=== PATIENT | female | born 1980 | race Caucasian/White ===

== ENCOUNTER 2017-12-29 11:17 | Emergency (ER) | payer BC ==
[2017-12-29] MEDS ORDERED: Ondansetron ODT 4 MG TAB ONE (13:11)
[2017-12-29] MEDS ORDERED: Acetaminophen 325 MG TAB ONE (13:11)
--- NOTE | 2017-12-29 13:57 | RAD ---
FOUR VIEWS CERVICAL SPINE: Indication: Neck pain. Comparison: None. FINDINGS: The cervical spine is evaluated to T2. Prevertebral soft tissues are normal appearing. Spinal alignme nt is preserved. Lung apices are clear. Lateral masses are symmetric. IMPRESSION: Cervical spine appears radiographically normal. POS: [facility]
== END 2017-12-29 15:30 | disposition home or self-care (01) ==
LOC: ERS 11:17
DX: S06.0X9A Concussion with loss of consciousness of unspecified duration, initial encounter (principal); S16.1XXA Strain of muscle, fascia and tendon at neck level, initial encounter; W22.8XXA Striking against or struck by other objects, initial encounter
CPT/HCPCS: 72050; 99284; Q0162

== ENCOUNTER 2019-09-09 05:59 | Day surgery (SDC) | payer BC ==
[2019-09-05 09:33] VITALS: BMI 21.1
[2019-09-05 10:48] LABS: Hemoglobin 13.2 g/dL (12.0-16.0); Mean Corpuscular HGB CONC 33.6 g/dL (32.0-36.0); Mean Corpuscular Hemoglobin 31.1 pg (27.0-31.0); Mean Corpuscular Volume 92.5 fL (78.0-98.0); Mean Platelet Volume 8.5 fL (7.4-10.4); Platelet Count 286 thou/uL (130-400); RBC Distribution Width 11.5 % (11.5-14.5); Red Blood Cell (RBC) Count 4.25 mill/uL (4.20-5.40); White Blood Cell (WBC) Count 6.5 thou/uL (4.8-10.8)
[2019-09-09] MEDS ORDERED: Famotidine/PF 20 mg/2ml Vial ONE (06:14)
[2019-09-09] MEDS ORDERED: CeleCOXIB 100 MG CAP ONE (06:15)
[2019-09-09] MEDS ORDERED: Gabapentin 300 MG CAP ONE (06:16)
[2019-09-09] MEDS ORDERED: Midazolam HCl 2 mg/2 ml Vial ONE (06:32)
[2019-09-09] MEDS ORDERED: Fentanyl 100 MCG/2 ML VIAL ONE ×4 (06:32→22:27)
[2019-09-09] MEDS ORDERED: Lidocaine 1% w/Epinephrine 1:100K 20 ML VIAL ONE ×2 (06:54→20:14)
[2019-09-09] MEDS ORDERED: Bupivacaine PF 0.5% 30 ML VIAL ONE ×2 (06:54→20:14)
[2019-09-09] MEDS ORDERED: Bisacodyl 10 MG SUPP PR PRN (09:22)
[2019-09-09] MEDS ORDERED: diphenhydrAMINE 25 MG CAP PO PRN (09:22)
[2019-09-09] MEDS ORDERED: Morphine 4 MG/ML VIAL SLOW IVP PRN (09:22)
[2019-09-09] MEDS ORDERED: EPHEDRINE 25 MG/5 ML SYRINGE ONE ×2 (09:29→20:52)
[2019-09-09] MEDS ORDERED: Ketorolac Tromethamine 30 MG/ML VIAL ONE (09:29)
[2019-09-09] MEDS ORDERED: Ondansetron PF 4 MG/2 ML Vial ONE ×3 (09:29→22:31)
[2019-09-09] MEDS ORDERED: Lidocaine 1% PF 5 ML VIAL ONE ×2 (09:29→20:52)
[2019-09-09] MEDS ORDERED: Rocuronium Bromide 10 MG/ML (10ML VIAL) ONE ×2 (09:29→20:52)
[2019-09-09] MEDS ORDERED: Glycopyrrolate 0.2 MG/ML 5 ML SYRINGE ONE ×2 (09:29→20:52)
[2019-09-09] MEDS ORDERED: Dexamethasone 20 MG/5 ML VIAL ONE ×2 (09:29→20:52)
[2019-09-09] MEDS ORDERED: PROPOFOL 200 MG/20 ML VIAL ONE ×2 (09:29→20:52)
[2019-09-09] MEDS ORDERED: Ondansetron HCl/PF 4 MG/2 ML Vial IVP PRN ×2 (09:33→22:50)
[2019-09-09] MEDS ORDERED: Promethazine HCl 25 MG/ML VIAL SLOW IVP PRN (09:33)
[2019-09-09] MEDS ORDERED: Promethazine HCl 25 MG/ML VIAL IM PRN (09:33)
--- NOTE | 2019-09-09 11:46 | OP ---
DATE OF PROCEDURE: 09/09/2019 PREOPERATIVE DIAGNOSES: 1. A 38-year-old white female with symptomatic 10-to 12-week uterine fibroids with menorrhagia and pelvic pain. 2. History of previous uterine artery embolization for fibroids. 3. Desires definitive surgical therapy. POSTOPERATIVE DIAGNOSES: 1. A 38-year-old white female with symptomatic 10-to 12-week uterine fibroids with menorrhagia and pelvic pain. 2. History of previous uterine artery embolization for fibroids. 3. Desires definitive surgical therapy. PROCEDURE PERFORMED: Robotic total laparoscopic hysterectomy and bilateral salpingectomy. PAROLE DIRECTOR SURGEON: Heidi Kumar PA-C ANESTHESIA: General endotracheal. ESTIMATED BLOOD LOSS: 25 mL. COMPLICATIONS: None. COUNTS: Correct x2. ANTIBIOTICS: 2 g Ancef on-call to OR. PATHOLOGY: Uterus, cervix, and bilateral fallopian tubes. FINDINGS: 1. Multiple small uterine fibroids, subserosal and intramural noted. 2. Clear urine present in Roche catheter postprocedure and bladder was watertight to distention postprocedure. 3. Bilateral ureteral peristalsis and path of ureters visualized intraoperatively and postprocedure noted to be inferior and lateral from the operative sites. DISPOSITION: To recovery room, stable. DESCRIPTION OF PROCEDURE: The patient previously received informed consent in regard to surgery. She was taken back to the operating room, where she received a general endotracheal anesthetic agent without complications. She was placed in the dorsal lithotomy position with the use of Micky stirrups and prepped and draped in usual sterile fashion. A Roche catheter was placed at this time along with a side-arm speculum. The anterior lip of the cervix was grasped with a single-tooth tenaculum. The uterus sounded to 9 cm. An 8-cm STEVEN uterine manipulator with a 4.0-cm cervical cup was placed. Tenaculum and speculum were removed. Attention was then turned to the abdomen, where perspective trocar sites were infiltrated with 0.5% Marcaine with epinephrine. A 12-mm supraumbilical incision was made and the Veress needle was entered into the peritoneal cavity. The patient's pressure was appropriate less than 5 mm and abdomen was insufflated with the patient's pressure of 15, approximately 5 L of carbon dioxide gas. Veress needle was then removed and a 12-mm trocar was placed. Laparoscope was then introduced through the trocar sleeve confirming proper entry. Additional bilateral lower quadrant 8-mm trocars were placed under laparoscopic guidance along with an 11-mm right upper quadrant promotions assistant port. The patient was placed in Trendelenburg position and the robot was docked in usual fashion. I then broke scrub and carried out the operative procedure from the operative console while my assistants remained at the bedside. The uterus was elevated from the pelvis. The left fallopian tube was grasped by my promotions assistant with atraumatic grasper. I then coagulated the mesosalpinx with fenestrated bipolar and then monopolar scissors. The left fallopian tube was then removed through the right upper quadrant port. The left utero-ovarian ligament was then coagulated and transected and then followed by serial coagulation and transection of the broad ligament structures hugging close to uterus until the left round ligament was reached. It was coagulated and transected and the anterior leaf of the broad ligament was entered dissecting the vesicouterine peritoneum in layering technique dropping the bladder safely past the cervical vaginal margin. The uterine vessels were then skeletonized in the left side. The ureter was noted to be very lateral and inferior to the operative site in the uterine vessels at the internal cervical os. These were coagulated and transected. Next, attention was then turned to the right side of the surgery. The right fallopian tube was grasped by my promotions assistant. Again, I coagulated the mesosalpinx and transected this removing the right fallopian tube through the right upper quadrant port. The uterine vessels again were coagulated the diffusely. The utero-ovarian ligament was coagulated and transected and then serial coagulation of the broad ligament structures hugging close to the uterus again were coagulated and transected until the right round ligament was reached. It was coagulated and transected. The anterior leaf of the broad ligament was entered and continued dissection of the vesicouterine peritoneum in a layering technique dropping the bladder safely past the cervical vaginal margin was carried out. The course of the right ureter was noted and had been skeletonized. During the skeletonization of the right uterine vessels, it was lateral and inferior to the operative site. The uterine vessels again had been skeletonized and they were coagulated in the internal cervical os region. I then felt that we confirmed that the bladder was sufficiently dissected atraumatically past the cervical vaginal margin by distending the bladder. Then a posterior colpotomy was made from the 6 o'clock to 3 o'clock and 6 o'clock to 9 o'clock direction. We then completed the anterior colpotomy from 12 o'clock to 3 o'clock and 12 o'clock to 9 o'clock position. On meticulous control of the blood vessels, the small uterine perforators were then coagulated intermittently as this was transected with bipolar fenestrated cautery. The specimen was then released from the vaginal cuff. I switched the monopolar scissors for a large needle team driver. The specimen was placed in the vaginal vault as we pulled it into place. The vaginal cuff was cauterized for any bleeders with bipolar fenestrated cautery. Stratafix suture was then brought in and closed the vaginal cuff from the right angle midline to the left angle back towards the midline with good cuff closure and hemostasis. We then irrigated all the pedicle sites again confirming hemostasis. Both pass of each ureter, left and right were visualized. They were peristalsing and they were noted to be inferior and lateral to the operative pedicle sites. Floseal was then placed over the vaginal cuff and edges for added hemostasis under direct visualization. The robot was then undocked. Trocar sleeves were removed. A deep stitch of 0 Vicryl was placed in a sujexo-gb-syric stitch fashion in the umbilicus region with good approximation of the fascia. The remainder of the ports were closed with 4-0 Monocryl subcuticular fashion and Dermabond. The vaginal cuff was checked vaginally with a sponge stick and hemostasis was confirmed. The patient was awakened from anesthesia, transferred to the recovery room in stable condition. Job ID: [id number]
[2019-09-09] MEDS: Ketorolac Tromethamine 30 MG/ML VIAL IVP SCH ×2 (14:14→21:44)
[2019-09-09] MEDS ORDERED: Simethicone Chewable 80 MG TAB PO PRN (16:24)
[2019-09-09] MEDS ORDERED: Mag-Al 1200 mg/1200 mg/30 ML UDCUP PO PRN (16:25)
[2019-09-09] MEDS: Ondansetron PF 4 MG/2 ML Vial IVP PRN (17:04)
[2019-09-09] MEDS: Simethicone Chewable 80 MG TAB PO PRN (17:04)
[2019-09-09] MEDS: Sodium Chloride 0.9% 1,000 ML IV SCH ×2 (17:30→20:11)
[2019-09-09] MEDS ORDERED: Morphine 2 MG/ML SYRINGE SLOW IVP PRN (19:17)
[2019-09-09 19:19] LABS: Mean Corpuscular HGB CONC 34.4 g/dL (32.0-36.0); Mean Corpuscular Hemoglobin 31.8 pg (27.0-31.0); Mean Corpuscular Volume 92.5 fL (78.0-98.0); Mean Platelet Volume 8.4 fL (7.4-10.4); Platelet Count 219 thou/uL (130-400); RBC Distribution Width 11.4 % (11.5-14.5); Red Blood Cell (RBC) Count 2.83 mill/uL (4.20-5.40); White Blood Cell (WBC) Count 15.4 thou/uL (4.8-10.8)
--- NOTE | 2019-09-09 20:16 | PDOC.EVN ---
Event Note - Event Note Event Note: Patient began having increased pain around 1730. Was given 4 mg morphine ivp..Blood pressures since arrival from day stay were 100/50 with pulse of 70' s. Adequate urine output. Began feeling more pain and sweaty and noted blood pressure 81/46 with pulse of 73 at 1838. Had some complaint of chest pressure. EKG ordered and 1 l O2 given for comfort. O2 sat was 99%...Stat hemagram was sent. HCT 26.7%...EBL was estimated 25 ml. Starting hct was 38% preop. Therefore ; expected post operative bleeding a concern... Exam at bedside: patient with more than expected post pain. Lips are pale. P 85...BP 85/52 pulse 84..trochar sites with no hematoma. Vaginal area dry. No active bleeding. Abdomen soft but very tender...C/o some right sided pelvic and flank pain... A/P: suspected post operative bleeding. Administer 1 unit prbc's now. Anesthesia consulted. To OR for diagnostic l scope . Evacuation of hematoma if found and exploring for possible bleeder.
[2019-09-09] MEDS ORDERED: Succinylcholine Chloride 20 MG/ML 10 ml SYRINGE FS ONE (20:52)
[2019-09-09] MEDS ORDERED: PHENYLEPHRINE-NS 100 MCG/ML 10 ML SYRINGE ONE (20:52)
--- NOTE | 2019-09-09 22:24 | OP ---
DATE OF PROCEDURE: 09/09/2019 RAIL CAR REPAIRMAN NOTE Preop DX: Suspected hemoperitoneum after Hyst Procedure: Diagnostic laparoscopy, evacuation of clots, cautery of bleeding peritoneal edge. placement of floseal Surgeon: Pranav assistant coach: Sesar Anesthesia: ANA MARIAA This is a patient of Dr. Jordana Rock. Time of intervention was roughly 2119 until around 2154. LOCATION: OR B. assistant coach surgical note: In brief, I was asked by Dr. Jordana Rock to be a assistant auto center manager on this patient who earlier today had a hysterectomy (laparoscopic) with suspected intraperitoneal bleed. She was receiving blood when I entered the OR. I assisted after the initial port into the umbilicus had been placed. Two accessory ports were placed, one on the right and one on the left side in the area of the previous laparoscopic ports. On the patient's right side, I maned a 10 mm port for the large irrigation. After copious irrigation, we found hemoperitoneum (about 1000 mL is my estimate), but please see the full dictation by Dr. Rock for her quantification. After detailed survey of the pelvic area, we found that there was a small bleeding peritoneal edge which was coming from the right peritoneal edge from the previous dissection. This was rendered hemostatic with bipolar cautery. No visceral organs were close to the instrument during delivery of energy. We then placed FloSeal over this area as well after confirming that there was no further recollection of blood. Copious irrigation was done and all clots were removed. Please turn to Dr. Rock full note for full details. Again, my role was certified ophthalmic assistant. Primary surgeon was Jordana. Job ID: [id number] [facility]
[2019-09-09] MEDS ORDERED: Meperidine HCl/PF 25 MG/ML VIAL ONE (22:27)
[2019-09-09] MEDS ORDERED: Morphine 4 MG/ML VIAL ONE (22:28)
[2019-09-09] MEDS ORDERED: Meperidine HCl/PF 25 MG/ML VIAL SLOW IVP PRN (22:50)
[2019-09-09 22:52] LABS: Hemoglobin 9.7 g/dL (12.0-16.0); Mean Corpuscular Hemoglobin 30.9 pg (27.0-31.0); Mean Corpuscular Volume 90.9 fL (78.0-98.0); Mean Platelet Volume 8.9 fL (7.4-10.4); Platelet Count 165 thou/uL (130-400); RBC Distribution Width 12.9 % (11.5-14.5); Red Blood Cell (RBC) Count 3.15 mill/uL (4.20-5.40); White Blood Cell (WBC) Count 13.4 thou/uL (4.8-10.8)
[2019-09-09] MEDS: Lactated Ringer's 1,000 ML IV SCH (23:40)
[2019-09-10] MEDS: Ketorolac Tromethamine 30 MG/ML VIAL IVP SCH ×4 (00:09→19:36)
[2019-09-10] MEDS ORDERED: Lactated Ringer's 1,000 ML IV SCH (00:30)
[2019-09-10] MEDS: Sodium Chloride 0.9% 1,000 ML IV SCH ×2 (01:30→19:53)
--- NOTE | 2019-09-10 02:55 | OP ---
DATE OF PROCEDURE: 09/09/2019 PREOPERATIVE DIAGNOSES: A 38-year-old white female, approximately 10 hours postop from a robotic TLH with bilateral salpingectomy with suspected postoperative bleeding. POSTOPERATIVE DIAGNOSIS: 1. Confirmed with pelvic hematoma evacuation. 2. Cauterization of bleeder on the right fold of the peritoneum on the right pelvic sidewall. SCREEN EXAMINER SURGEON: Basilio Kaba MD from OB hospitalist service. ANESTHESIA: General endotracheal. ESTIMATED BLOOD LOSS: Less than 10 mL. FINDINGS: 1. Approximately 500 mL of clot in the pelvis, extending somewhat fluid up in the Morison's pouch status post evacuation. 2. Evaluation of left pelvic sidewall with no active bleeding and normal hemostatic left ovary. 3. Vaginal cuff inspection with no active bleeding in the vaginal cuff and appeared to be intact. No bleeding on the peritoneal surface of the bladder noted. Right ovary was hemostatic. There appeared to be more of a clot on the right pelvic sidewall. There was a small bleeder on the lower 3rd of the peritoneal edge, reflection of the retroperitoneum, status post cauterization. PATHOLOGY: None. In addition, the patient received 2 units of packed red blood cells intraoperatively. DISPOSITION: To PACU and then back to the floor. DESCRIPTION OF PROCEDURE: The patient had suspected postoperative bleeding with noted evidence of increasing abdominal pain and unexpected drop in her hematocrit with low blood pressure. No elevated tachycardia of much concern, but rising heart rate from her baseline. She was given informed consent, taken to the operating room. Anesthesia administered general endotracheal anesthetic agent. She was prepped and draped in usual fashion, placed in dorsal lithotomy position. Roche catheter had already been in place. A 5 mm incision in the umbilicus was made. A 5 mm Veress needle was inserted in the abdomen. Abdomen was insufflated to the patient's pressure of 15. A 5 mm trocar was then placed. The laparoscope was introduced through the trocar sleeve. The abdomen was inspected and noted hematoma was present. A size 10 mm right lower quadrant trocar was placed with a large 10 mm suction geriatric physical therapist. A 5 mm left lower quadrant trocar was then also placed under laparoscopic guidance. The patient was placed in Trendelenburg and a vaginal sponge stick was placed in the vagina to elevate the vaginal cuff. The pelvis was irrigated and a large hematoma was evacuated with a 10 mm suction geriatric physical therapist. Then we switched to the 5 mm suction area on the left side and irrigated Morison's pouch removing a majority of the blood. This allowed for us to inspect the operative pedicle sites more carefully. The left pelvic sidewall and left ovary did not appear to have any active bleeding. The vaginal cuff did not appear to have any active bleeding nor any bleeding in the peritoneal surfaces of the bladder. The right pelvic sidewall had more of a clotting in this region and then on inspection appeared to be some slow accumulation of blood over the edge site and there appeared to be a type of area of some oozing on the peritoneal edge with some active bleeding. This area was grasped with the Estefania after isolation of this and cauterized with coag at 30 ghotra. We then irrigated again the area and in the posterior cul-de-sac and there was no active accumulation of any significant blood and mainly was irrigant solution that remained clear. We then dropped the patient's abdominal pressure to 0 and then went back in after approximately 3 minutes and looked back into the peritoneal cavity. No excessive blood had accumulated on a low venous pressure. We then added FloSeal to the area of the right pelvic sidewall bed where the oozing had been noted and the bleeder had been cauterized. Again, we inspected the other pedicle sites including the vaginal cuff and the peritoneal surface of the bladder on the left pelvic sidewalls and ovary and right ovary and all appeared hemostatic. The excess carbon dioxide gas was then released from the abdomen. Trocar sleeves were removed. I put in a single stitch of 0 Vicryl in the fascia of the 5 cm site, closed this with 4-0 subcuticular Monocryl along with the other trocar sites and I put a deep stitch of 0 Vicryl in the 10 mm fascial edge on the right lower quadrant along with a 4-0 Monocryl. Dermabond was then placed in the vaginal cuff. Sponge stick was removed and it was hemostatic. The patient was awakened from anesthesia and transferred to recovery room in stable condition. Job ID: [id number]
[2019-09-10] MEDS: Lactated Ringer's 1,000 ML IV SCH ×2 (05:57→19:42)
[2019-09-10 06:10] LABS: Hemoglobin 8.5 g/dL (12.0-16.0); Mean Corpuscular HGB CONC 33.4 g/dL (32.0-36.0); Mean Corpuscular Hemoglobin 29.9 pg (27.0-31.0); Mean Corpuscular Volume 89.4 fL (78.0-98.0); Mean Platelet Volume 8.8 fL (7.4-10.4); Platelet Count 159 thou/uL (130-400); RBC Distribution Width 13.3 % (11.5-14.5); Red Blood Cell (RBC) Count 2.85 mill/uL (4.20-5.40); White Blood Cell (WBC) Count 12.5 thou/uL (4.8-10.8)
--- NOTE | 2019-09-10 08:18 | PDOC.EVN ---
Event Note - Event Note Event Note: Feels better. Pain is a 4 compared to a 10 last pm prior to surgery. O:Afebrile. 98/54 P 84 O2 sat 98..HCT 25.5 at 0550. U/o >30 ml/hour... Abdomen-soft. Non distended. Trochar site intact. No rebound... Vagina-no active bleeding. A/P: post op day 1 from robotic hyst with post op bleeding and then diagnostic l scope with evacuation of 1000 ml blood and coagulation of right peritoneal side wall edge bleeder. Received 2 units prbc's.Appears hemodynamically stable. Advance to clears. Begin increasing activity . observe for signs of orthostatic symptoms.
[2019-09-10] MEDS: Ondansetron PF 4 MG/2 ML Vial IVP PRN (08:20)
[2019-09-10] MEDS: HYDROcodone/Acetaminophen 5/325 mg Tablet PO PRN ×3 (13:14→21:35)
[2019-09-10] MEDS: Simethicone Chewable 80 MG TAB PO PRN (13:15)
[2019-09-10] MEDS: Prenatal Vitamin 1 TAB PO SCH (14:55)
[2019-09-10 20:05] LABS: Hemoglobin 8.5 g/dL (12.0-16.0); Mean Corpuscular HGB CONC 34.3 g/dL (32.0-36.0); Mean Corpuscular Hemoglobin 30.6 pg (27.0-31.0); Mean Corpuscular Volume 89.3 fL (78.0-98.0); Mean Platelet Volume 7.5 fL (7.4-10.4); Platelet Count 124 thou/uL (130-400); RBC Distribution Width 13.3 % (11.5-14.5); Red Blood Cell (RBC) Count 2.77 mill/uL (4.20-5.40); White Blood Cell (WBC) Count 10.9 thou/uL (4.8-10.8)
[2019-09-10 20:21] LABS: Anion Gap 6 mmol/L (10-20); BUN (Urea Nitrogen) 10 mg/dL (7.0-18.7); Calc. Creatinine Clearance 119 mL/min (70-130); Calcium 7.6 mg/dL (7.8-10.44); Carbon Dioxide 26 mmol/L (22-29); Chloride 110 mmol/L (98-107); Estimated GFR-MDRD Greater than 90; Glucose 101 mg/dL (70-105); Potassium 3.9 mmol/L (3.5-5.1); Sodium 138 mmol/L (136-145)
[2019-09-11] MEDS ORDERED: Ibuprofen 800 MG TAB PO SCH (06:00)
[2019-09-11] MEDS: Sodium Chloride 0.9% 1,000 ML IV SCH ×3 (07:16→16:57)
[2019-09-11] MEDS: Lactated Ringer's 1,000 ML IV SCH ×3 (07:17→23:38)
[2019-09-11] MEDS: HYDROcodone/Acetaminophen 5/325 mg Tablet PO PRN ×2 (07:20→11:17)
--- NOTE | 2019-09-11 07:50 | PDOC.EVN ---
Event Note - Event Note Event Note: Feels better this morning. Tolerating diet. passing some flatus. Slept ok. No excessive pain. O: T 98.6 Pulse 86 BP 103/67 U/O 700ml last shift. HCT 23.5 @0455....24.7 hct 1 hour post 1 unit prbc's at 1958... ABDOMEN: soft/non distended.Bowel sounds present. No rebound. Trochar sites clean dry/intact. A/P Post op day 2 from Robotic hyst with post op bleed/hemorrhage with diagnostic scope and removal of hemoperitoneum and cauterization of bleeder. Hemodynamically after unit 3 PRBC's... Blood pressure stable. Good urine output. No tachycardia. HCT stable. OOB. Increase activity. Diet advanced. D/c johnson after ambulating safely...
[2019-09-11] MEDS: Simethicone Chewable 80 MG TAB PO PRN ×2 (08:28→21:16)
[2019-09-11] MEDS: Prenatal Vitamin 1 TAB PO SCH (09:26)
[2019-09-11] MEDS ORDERED: traMADol HCl 50 MG TAB PO PRN (13:30)
[2019-09-11] MEDS: Ondansetron PF 4 MG/2 ML Vial IVP PRN (18:05)
[2019-09-11] MEDS ORDERED: Acetaminophen 500 MG TAB PO PRN (20:50)
[2019-09-11] MEDS ORDERED: Metoclopramide HCl 10 MG/2 ML VIAL IVP PRN (20:51)
[2019-09-11] MEDS ORDERED: Ondansetron PF 4 MG/2 ML Vial SLOW IVP PRN (20:51)
[2019-09-11] MEDS ORDERED: Ibuprofen 800 MG TAB PO PRN (20:52)
[2019-09-11] MEDS ORDERED: Ondansetron PF 4 MG/2 ML Vial SLOW IVP SCH (21:00)
[2019-09-11] MEDS: Zolpidem Tartrate 5 MG TAB PO PRN (22:22)
[2019-09-12] MEDS: VITEX PO SCH ×2 (01:10→04:26)
[2019-09-12] MEDS: Sodium Chloride 0.9% 1,000 ML IV SCH ×2 (03:00→08:09)
[2019-09-12] MEDS: Zolpidem Tartrate 5 MG TAB PO PRN (03:16)
[2019-09-12] MEDS: Lactated Ringer's 1,000 ML IV SCH ×2 (06:26→08:09)
[2019-09-12] MEDS: Prenatal Vitamin 1 TAB PO SCH (07:45)
[2019-09-12 07:59] VITALS: BP 108/63; TEMP 99.5
--- NOTE | 2019-09-12 08:14 | PDOC.EVN ---
Event Note - Event Note Event Note: S: Feels much stronger this morning. Ambulated without assistance ...nausea resolved. Feels like the tramadol made her feel anxious and nauseated. Doing better with just tylenol and motrin..+flatus. O: T98.3 P 90 BP 110/74 o2 sat 98% on RA..U/O 2280 ml ABD: soft. Non distended. Trochar sites c/d/i A/P Post op day 3...Clinically much improved. hemodynamically stable. Afebrile. D/c home today. F/u 09/15. OTC tylenol/motrin. Iron rich foods. OTC iron supplement once she has bm....
--- NOTE | 2019-09-12 08:22 | EKG ---
Test Reason : STAT Blood Pressure : / mmHG Vent. Rate : 086 BPM Atrial Rate : 086 BPM P-R Int : 122 ms QRS Dur : 068 ms QT Int : 370 ms P-R-T Axes : 075 056 063 degrees QTc Int : 442 ms Normal sinus rhythm Normal ECG No previous ECGs available Confirmed by DR. Manuel GOULD ([id number]) on 09/12/2019 8:21:40 AM Referred By: DREA Confirmed By:DR. Manuel GOULD
--- NOTE | 2019-09-13 07:38 | DIS ---
DATE OF ADMISSION: 09/09/2019 DATE OF DISCHARGE: 09/12/2019 DIAGNOSES: 1. Symptomatic uterine fibroids, menorrhagia and pelvic pain. 2. Postoperative hemorrhage. 3. Acute blood-loss anemia. PROCEDURES PERFORMED: Robotic total laparoscopic hysterectomy with bilateral salpingectomy. Diagnostic laparoscopy with evacuation of the hemoperitoneum and cauterization of bleeding vessel. 3 units of packed red blood cell transfusion. SUMMARY OF HOSPITAL COURSE: Ms. Pino is a 38-year-old white female, who had approximately 12-week size uterine fibroids. She had, had uterine artery embolization procedure in the past for the fibroids for heavy bleeding and pelvic pain, which essentially had failed. She persisted with heavy menorrhagia and also pelvic pain and dysmenorrhea. She desired definitive surgical therapy. On September 08, she underwent a robotic total laparoscopic hysterectomy and bilateral salpingectomy. Intraoperative blood loss of this maybe 25 mL. On the late afternoon of postop day #1, the patient began to ambulate out of bed and then was noted to have an increasing abdominal pain. She also reported some shoulder pain and chest discomfort. Vital signs were at the baseline 100/50s and pulse remained in the 70s to 80s. She was brought back in the bed and then she was given morphine 4 mg for the pain. She then was brought to the chair to get more comfort and then she became hypotensive with a blood pressure in the 80s/50s and pulse in the high 80s. I was called in by the floor nurse and I ordered an EKG along with a CBC. O2 saturations remained normal throughout. I was also then came to evaluate the patient at the bedside. On my arrival, I noted her CBC results, she had dropped her hematocrit more than expected from her intraoperative estimated blood loss. Starting hematocrit was approximately 39% and it dropped down to 26%. This was worrisome for postoperative bleed/hemorrhage. The patient at the bedside was very uncomfortable, had definite rebound on exam with an overly tender abdomen and inappropriate for usual postoperative course. She received 1 L of Ringer's lactate fluid bolus and I summoned the operating room and Anesthesia to plan for taking the patient back for diagnostic laparoscopy. 2 units of packed red blood cells were ordered and these were planned to be started infusing in Day Stay prior to taking back to the OR. The patient underwent a diagnostic laparoscopy at this time and was noted to have approximately 1000 mL of hemoperitoneum clot. This was evacuated. In meticulous inspection of the pelvis from the previous operative site, there appeared to be a small bleeder on the right medial inferior third of the peritoneal fold. This was cauterized. All the other areas were carefully inspected and no active bleeders were seen. The pressures were dropped again and no active accumulation of blood was noted. Floseal was then also placed over the previous bleeder site. The patient had received 2 units of blood intraoperatively and vitals were stable. She was then taken to the PACU and immediate postoperative hematocrit after 2 units was noted to be approximately 27. Her vital signs remained stable. She was transferred back to the postoperative floor. She had another hematocrit checked approximately 8 hours postoperatively, there is mild drop from 27 to approximately 25. Again, vital signs were stable and with no excessive resting tachycardia. Her urine output remained adequate greater than 30 mL throughout and her pain was managed with intermittent morphine and also Novinger with clear liquids. In the evening of 2nd postop procedure, she was gotten up and had ambulated to the bathroom with assistance by the nurse and she did feel very orthostatic from the supine to standing position, where she had a near syncopal episode. Nurse brought her back in the bed safely. I felt that the patient needed another unit of packed cells and these were administered. I had again returned to bedside and evaluated the patient. Her abdomen was soft. She had no extensive peritoneal signs and like she did with the previous hemorrhage. I administered another unit of packed cells. Her vital signs returned and the pulse is in the 70s to 80s with blood pressures in the 100 to 110s over 60s to 70s. Urine output again continued to remain adequate. She was then on postop day 2, increased her ambulation with assistance. This all improved and her pain medications were being managed by oral Novinger, which she then said was too powerful, made her feel woozy and we switched this to tramadol. In the evening of postop day #2, she felt some anxiety and felt that this may be contributed to the tramadol. We held this and she was actually having adequate pain control with oral Tylenol and Motrin. She was given Ambien 5 mg at night for sleep and the anxiety, which worked very well for her and she had a restful night prior to discharge this morning. Again, her vital signs are 110s/70s, pulse in the 80s, respirations 16, and O2 saturations on room air 98%. She is comfortable with no excessive pain. Pathology was reviewed with all benign uterine fibroids. She was discharged on 09/12/2019. Discharge medications will be [id number] ibuprofen and Tylenol as directed and Ambien 5 mg tablet at bedtime for sleep as needed. She will be followed up on 09/15 for postoperative check and has already scheduled 6-week postop followup. Job ID: [id number]
== END 2019-09-12 11:15 | disposition home or self-care (01) ==
LOC: SDC 05:59 → 3SE 09:22 → SURG A 09-11 17:01 → SDC 09-12 11:15
PROVIDERS: ATTEND Obstetrics & Gynecology
PROC: 0UT94ZZ Resection of Uterus, Percutaneous Endoscopic Approach (ICD-10-PCS; principal; 2019-09-09)
PROC: 0UT74ZZ Resection of Bilateral Fallopian Tubes, Percutaneous Endoscopic Approach (ICD-10-PCS; principal; 2019-09-09)
PROC: 0W3G4ZZ Control Bleeding in Peritoneal Cavity, Percutaneous Endoscopic Approach (ICD-10-PCS; 2019-09-09)
DX: D25.1 Intramural leiomyoma of uterus (principal); D25.2 Subserosal leiomyoma of uterus; N72 Inflammatory disease of cervix uteri; N99.840 Postprocedural hematoma of a genitourinary system organ or structure following a genitourinary system procedure; N99.820 Postprocedural hemorrhage of a genitourinary system organ or structure following a genitourinary system procedure; K66.1 Hemoperitoneum; Z88.8 Allergy status to other drugs, medicaments and biological substances
CPT/HCPCS: 36415; 36430; 80048; 85014; 85018; 85027; 86850; 86900; 86901; 88307; 93005; 93010; J0690; J1100; J1885; J2001; J2175; J2250; J2270; J2405; J2704; J2765; J3010; P9016; S0020; S0028

== ENCOUNTER 2019-09-15 14:20 | Inpatient (IN) | payer BC ==
[2019-09-15] MEDS ORDERED: Iopamidol-370 76% 500 ML 1 ML ONE (14:37)
[2019-09-15 14:58] LABS: #Eosinphils 0.2 thou/uL (0.0-0.7); #Lymphocytes 0.8 thou/uL (1.20-3.40); #Monocytes 1.4 thou/uL (0.11-0.59); #Neutrophils 15.5 thou/uL (1.40-6.50); %Basophils 0.2 % (0.0-1.0); %Lymphocytes 4.6 % (21.0-51.0); %Monocytes 7.9 % (0.0-10.0); %Neutrophils 86.3 % (42.0-75.0); Hemoglobin 10.2 g/dL (12.0-16.0); Mean Corpuscular Hemoglobin 30.8 pg (27.0-31.0); Mean Corpuscular Volume 90.7 fL (78.0-98.0); Mean Platelet Volume 8.1 fL (7.4-10.4); Platelet Count 296 thou/uL (130-400); RBC Distribution Width 12.8 % (11.5-14.5); Red Blood Cell (RBC) Count 3.31 mill/uL (4.20-5.40)
[2019-09-15 15:19] LABS: ALT (SGPT) 14 U/L (8-55); AST (SGOT) 14 U/L (5-34); Albumin 4.3 g/dL (3.5-5.0); Alkaline Phosphatase 80 U/L (40-110); Anion Gap 15 mmol/L (10-20); BUN (Urea Nitrogen) 6 mg/dL (7.0-18.7); Bilirubin, Total 0.9 mg/dL (0.2-1.2); Calc. Creatinine Clearance 0 mL/min (70-130); Calcium 9.8 mg/dL (7.8-10.44); Carbon Dioxide 23 mmol/L (22-29); Chloride 103 mmol/L (98-107); Estimated GFR-MDRD Greater than 90; Globulin 3.4 g/dL (2.4-3.5); Glucose 116 mg/dL (70-105); Potassium 3.7 mmol/L (3.5-5.1); Protein, Total 7.7 g/dL (6.0-8.3); Sodium 137 mmol/L (136-145)
[2019-09-15] MEDS ORDERED: Piperacillin/Tazobactam 4.5 GM VIAL ONE (15:49)
--- NOTE | 2019-09-15 16:08 | RAD ---
Chest AP view INDICATION: History of recent hysterectomy and fever COMPARISON: None FINDINGS: Lungs: The lungs are clear Cardiac silhouette: The cardiomediastinal silhouette appears within normal limits. Pulmonary vasculature: Normal Pleural spaces: No pleural effusion or pneumothorax is demonstrated. Upper abdomen: No abnormality seen. Osseous structures: No acute osseous abnormality. Additional findings: None. IMPRESSION: No acute cardiopulmonary abnormality.
[2019-09-15 16:09] LABS: Bilirubin Negative (Negative); Blood, Urine Negative (Negative); Clarity Clear (Clear); Glucose, Urine (Dipstick) Normal (Negative); Leukocyte Negative Leu/uL (Negative); Nitrite Negative (Negative); Protein, Urine (Dipstick) Negative (Neg-Trace); Urobilinogen Normal mg/dL (Less than 2)
--- NOTE | 2019-09-15 16:16 | CT ---
CT OF THE ABDOMEN AND PELVIS WITH IV CONTRAST INDICATION: History of hysterectomy on September 08, 2018; now with fever COMPARISON: None FINDINGS: ABDOMEN: Lung bases: Clear Liver: There is a mild amount of fatty infiltration near the falciform ligament Gallbladder: Normal appearing. Pancreas: Normal. Adrenal glands: Normal. Spleen: Normal. Kidneys and ureters: Normal. No hydronephrosis. Vasculature: There are endovascular coils seen within the gonadal veins. Lymph nodes:No lymphadenopathy. Free fluid in abdomen:No free fluid is evident. PELVIS: Small and large bowel: Normal Appendix:Normal Bladder: Normal. Rectal and perirectal soft tissues:There is mild wall thickening involving the lower rectum. There is prominent perirectal inflammatory stranding Reproductive structures: Uterus surgically absent. The adnexa appear enlarged and edematous. The righ t adnexa measures approximately 4.3 cm. Left adnexa measures 4.1 cm. This is seen on image 60 series 2. Within the hysterectomy site there is a 6.8 x 5 cm fluid and gas collection suspicious for abscess. Free fluid in pelvis: There is moderate free fluid in the pelvis Lymphadenopathy pelvis: No lymphadenopathy is evident. Osseous structures: No acute osseous abnormality. No destructive osteolytic or osteoblastic lesion i s identified. Soft tissues:Normal. IMPRESSION: 1. Postoperative change of a hysterectomy with a 6.8 x 5 cm abscess seen at the hysterectomy site. Th e position of this abscess within the central pelvis limits ability for percutaneous drainage. The collection is seen posterior to the bladder and is surrounded by the rectum and bowel. Surgical consu ltation for drainage is recommended. 2. Mild wall thickening involving the lower rectum with surrounding perirectal inflammatory stranding is likely related to reactive proctitis from the adjacent abscess. 3. Enlargement and edematous changes of the adnexa may be reactive in nature related to the abscess w ithin the pelvis. 4. Endovascular coils within the region of the gonadal veins.
[2019-09-15] MEDS ORDERED: Acetaminophen 500 MG TAB PO PRN (16:34)
[2019-09-15] MEDS ORDERED: Ondansetron PF 4 MG/2 ML Vial IVP PRN (16:34)
[2019-09-15] MEDS ORDERED: Ibuprofen 200 MG TAB ONE (17:07)
[2019-09-15] MEDS ORDERED: Vancomycin 1.5 GRAM/300 ML BAG 1.5 GM in Premix Bag 1 BAG IVPB SCH (17:30)
[2019-09-15] MEDS ORDERED: Lactated Ringer's 1,000 ML IV SCH (19:00)
[2019-09-15] MEDS: Acetaminophen 325 MG TAB PO PRN (19:25)
[2019-09-15] MEDS: Sodium Chloride 0.9% 1,000 ML IV SCH (19:43)
[2019-09-15 21:20] VITALS: BMI 24.8
[2019-09-15] MEDS: Docusate 100 MG CAP PO SCH (21:47)
[2019-09-15] MEDS: Piperacillin/Tazobactam 3.375 GM in Sodium Chloride 0.9% 100 ML IVPB SCH (21:48)
--- NOTE | 2019-09-15 21:51 | HP ---
CHIEF COMPLAINT: Fever postop. HISTORY OF PRESENT ILLNESS: Ms. Pino is a 38-year-old female with a history of previous uterine artery embolization for symptomatic uterine fibroids, who is postop day #6 status post robotic TLH that was complicated by postop bleeding. She had a reoperation to obtain hemostasis. She presented to the emergency department with new onset fever today and headaches for the last 2 days. She reports that her pain has actually much improved up until this point and other than her headaches is otherwise without complaints. REVIEW OF SYSTEMS: Negative for head, eyes, ears, nose, throat, cardiovascular, respiratory, GI, , neuropsych, musculoskeletal, skin, or constitutional symptoms other than mentioned above. Her history and physical was reviewed from preop on 09/05 and is without any interval changes. MEDICATIONS: Ibuprofen and Tylenol as needed. PHYSICAL EXAMINATION: VITAL SIGNS: Temperature 102.7, tachycardic in the 100s, blood pressure within normal limits. GENERAL: Awake, alert, no acute distress. CHEST: Nonlabored. ABDOMEN: Soft and appropriately tender to palpation. No rebound or guarding. PELVIC: Deferred at this time. ASSESSMENT/PLAN: A 38-year-old G4, P3, A1, status post robotic TLH with reoperation for bleed, who has postop fever. CT scan showed an area at the vaginal cuff consistent with abscess versus hematoma. She will be admitted for IV antibiotics and placed on IV vanc and Zosyn at this time. I spoke with Dr. Rock, who agrees with this plan. We will continue to monitor for clinical improvement. If no improvement, she may need surgical drainage. I discussed these findings with the patient who voiced understanding. Job ID: [id number] [facility]
[2019-09-15] MEDS ORDERED: Piperacillin/Tazobactam 3.375 GM in Sodium Chloride 0.9% 100 ML IVPB SCH (23:59)
[2019-09-16] MEDS: Vancomycin 1 GM in Premix Bag 1 BAG IVPB SCH ×3 (02:38→17:53)
[2019-09-16] MEDS: Ibuprofen 800 MG TAB PO PRN ×2 (03:41→16:05)
[2019-09-16] MEDS: Piperacillin/Tazobactam 3.375 GM in Sodium Chloride 0.9% 100 ML IVPB SCH ×4 (04:20→22:13)
[2019-09-16] MEDS: Acetaminophen 325 MG TAB PO PRN ×2 (04:57→16:06)
[2019-09-16 06:15] LABS: Band 7 % (5-11); Hemoglobin 7.9 g/dL (12.0-16.0); Hypochromia SLIGHT = 6-15 cells (100X) (0-5/hpf); Lymphocytes 7 % (21-51); MDiff Complete? YES; Mean Corpuscular HGB CONC 34.3 g/dL (32.0-36.0); Mean Corpuscular Hemoglobin 31.2 pg (27.0-31.0); Mean Corpuscular Volume 91.1 fL (78.0-98.0); Mean Platelet Volume 8.1 fL (7.4-10.4); Monocytes 3 % (0-10); Neutrophil 83 % (42-75); Platelet Count 225 thou/uL (130-400); Platelet Morphology Comment Appears Adequate; RBC Distribution Width 12.5 % (11.5-14.5); Red Blood Cell (RBC) Count 2.52 mill/uL (4.20-5.40); White Blood Cell (WBC) Count 19.9 thou/uL (4.8-10.8)
--- NOTE | 2019-09-16 07:46 | PDOC.EVN ---
Event Note - Event Note Event Note: No pain. Hungry... O: T 98.9 ..TMAX 102.9. 106/60. P 96 R14 ABD soft/non distended. No rebound. WBC19.9 HCT 22.9...discharge hct 24%. A/P: pod 7 --ct scan with 5 x 6.8 collection in lower pelvis most c/w infected hematoma and appropriate for recent surgery with post op bleed and reoperation...Continue iv antibiotics and follow patient clinically ....
[2019-09-16] MEDS: Docusate 100 MG CAP PO SCH ×2 (09:14→20:49)
[2019-09-16] MEDS: Prenatal Vitamin 1 TAB PO SCH (09:15)
[2019-09-16] MEDS: Sodium Chloride 0.9% 1,000 ML IV SCH ×2 (16:06→23:22)
[2019-09-17 01:40] LABS: Vancomycin, Trough 12.2 ug/mL
[2019-09-17] MEDS: Vancomycin HCl 1.25 GM in Sodium Chloride 0.9% 250 ML 250 ML IVPB SCH ×3 (02:08→18:07)
[2019-09-17] MEDS: Piperacillin/Tazobactam 3.375 GM in Sodium Chloride 0.9% 100 ML IVPB SCH ×4 (03:58→22:08)
[2019-09-17] MEDS: Ibuprofen 800 MG TAB PO PRN ×2 (07:48→18:00)
--- NOTE | 2019-09-17 08:21 | PDOC.EVN ---
Event Note - Event Note Event Note: Reports had a good night and had BM. Passed some bloody brownish vaginal fluid. Feels ok until she gets a fever. No excessive abdominal pain. No n/v. O: Tmax 130.1. T current 98.7 P 96 94/50 Blood cultures neg x 2 urine culture neg. HCT 22.9 --baseline at discharge was 24.... Abdomen is soft/non distended. No rebound. A/P: presumed infected cuff hematoma . On zosyn/vancomycin day 1-2. Has fever spikes with afebrile periods. Anemia from recent post op bleed.. Will transfuse 1 unit today to improve healing and less stress on patient with infection. Continue zosyn/vancomycin. Consider reimaging with CT 09/17 for hematoma /mass status.
[2019-09-17] MEDS: Prenatal Vitamin 1 TAB PO SCH (08:55)
[2019-09-17] MEDS: Docusate 100 MG CAP PO SCH ×2 (08:56→22:09)
[2019-09-17] MEDS: Sodium Chloride 0.9% 1,000 ML IV SCH (20:44)
[2019-09-18 01:04] LABS: #Eosinphils 0.3 thou/uL (0.0-0.7); #Lymphocytes 1.4 thou/uL (1.20-3.40); #Monocytes 1.4 thou/uL (0.11-0.59); #Neutrophils 10.8 thou/uL (1.40-6.50); %Basophils 0.2 % (0.0-1.0); %Eosinophils 2.5 % (0.0-10.0); %Lymphocytes 10.1 % (21.0-51.0); %Neutrophils 77.2 % (42.0-75.0); Hemoglobin 7.4 g/dL (12.0-16.0); Mean Corpuscular HGB CONC 33.5 g/dL (32.0-36.0); Mean Corpuscular Hemoglobin 30.6 pg (27.0-31.0); Mean Corpuscular Volume 91.5 fL (78.0-98.0); Mean Platelet Volume 7.6 fL (7.4-10.4); Platelet Count 255 thou/uL (130-400)
[2019-09-18 01:26] LABS: Vancomycin, Trough 21.2 ug/mL
[2019-09-18] MEDS: Vancomycin 1 GM in Premix Bag 1 BAG IVPB SCH ×2 (01:48→12:07)
[2019-09-18] MEDS: Piperacillin/Tazobactam 3.375 GM in Sodium Chloride 0.9% 100 ML IVPB SCH ×4 (04:09→22:08)
--- NOTE | 2019-09-18 07:43 | PDOC.EVN ---
Event Note - Event Note Event Note: Ambulating. Had another BM last night. Had more passage of foul smelling serosanguinous vaginal fluid. No pain of concern. O: T max 101.4...P 89-91. Tc 98.5 BP 96/61 ABD:soft. Non-distended. No rebound. Ecchymosis areas stable. WBC 14 with 77.2 segs....Improved from WBC 19....Received 1 uniti prbc's ...HGB stable at 7.4. Has received 75 ml ivf with additional ivf from antibiotics...Does not appear to be actively bleeding clinically. A/P: Temperature curve and WBC down trending. Appears to have had spontaneous evacuation of infected vaginal cuff hematoma. Continue IV Vancomycin/zosyn. Decrease IVF's.
[2019-09-18] MEDS: Acetaminophen 325 MG TAB PO PRN (09:19)
[2019-09-18] MEDS: Docusate 100 MG CAP PO SCH ×2 (09:19→20:52)
[2019-09-18] MEDS: Ondansetron ODT 4 MG TAB PO PRN ×2 (10:29→22:15)
[2019-09-18] MEDS: Prenatal Vitamin 1 TAB PO SCH (10:37)
--- NOTE | 2019-09-18 12:13 | PQF ---
CLINICAL DOCUMENTATION IMPROVEMENT CLARIFICATION FORM: ICD-10 Updated PLEASE DO AN ADDENDUM TO THE PROGRESS NOTE WITH ANY DOCUMENTATION UPDATES OR ADDITIONS AND CARRY THROUGH TO DC SUMMARY. THANK YOU. DATE: 09/18/19 ATTN: DR. SHEPARD Please exercise your independent, professional judgment in responding to the clarification form. Clinical indicators are provided on the bottom of this form for your review Please check appropriate box(es): [ ] Sepsis due to: (Pna, UTI, gangrenous gall bladder, etc.) Due to: [ ] SIRS due to non-infectious process (please specify etiology) [ ] Localized infection without sepsis [ ] Other diagnosis [ ] Unable to determine In addition, please specify: Present on Admission (POA): [ ] Yes [ ] No [ ] Unable to determine For continuity of documentation, please document condition throughout progress notes and discharge summary. Thank You. CLINICAL INDICATORS - SIGNS / SYMPTOMS / LABS / RESULTS AND LOCATION IN MR ER NOTE: "SEPSIS" PULSE 109-126 TEMP 103 WBC 8: 18.0 WBC 09/15: 19.9 RISKS: RECENT VAGINAL CUFF HEMATOMA (EVENT NOTE 09/17) RECENT HYSTERECTOMY (H&P 09/16) TREATMENT: IV VANCOMYCIN (ER-PRESENT) IV FLUIDS (ER-PRESENT) ZOSYN (ER-PRESENT) BLOOD AND URINE CULTURES SAP Nuclear Medicine Physician [employer] Winform Viewer (This form is maintained as a part of the permanent medical record) 2014 [employer]. All Rights Reserved [email or web address] [email or web address] Office: [phone] YAHAIRA
--- NOTE | 2019-09-18 12:23 | PQF ---
CLINICAL DOCUMENTATION IMPROVEMENT CLARIFICATION FORM: ICD-10 Updated PLEASE DO AN ADDENDUM TO THE PROGRESS NOTE WITH ANY DOCUMENTATION UPDATES OR ADDITIONS AND CARRY THROUGH TO DC SUMMARY. THANK YOU. DATE: 09/18/19 ATTN : DR. SHEPARD Please exercise your independent, professional judgment in responding to the clarification form. Clinical indicators are provided on the bottom of this form for your review Please check appropriate box(s): [ ] Acute blood loss anemia [ ] Post-op anemia related to acute blood loss [ ] Anemia: [ ] Aplastic [ ] Nutritional [ ] Drug induced (specify) ___ [ ] Chronic Anemia: [ ] Blood loss [ ] Hemolytic [ ] Simple [ ] Due to Vitamin B12 Deficiency [ ] Other [ ] Anemia of Chronic Disease (please specify) [ ] Other diagnosis [ ] Unable to determine In addition, please specify: Present on Admission (POA): [ ] Yes [ ] No [ ] Unable to determine For continuity of documentation, please document condition throughout progress notes and discharge summary. Thank You. CLINICAL INDICATORS - SIGNS / SYMPTOMS / LABS / RESULTS AND LOCATION IN EMR HGN 09/14: 10.2 HGN 09/15: 7.9 HCT 09/14: 30.0 HCT 09/15: 22.9 RISKS: VAGINAL CUFF HEMATOMA (EVENT NOTE 09/17) RECENT HYSTERECTOMY (H&P 09/16) TREATMENT: SERIAL LABS BLOOD TRANSFUSION X2 (ORDERED 09/16) (This form is maintained as a part of the permanent medical record) 2014 [employer] All Rights Reserved [email or web address] Office: [phone] [facility] CENTERBrayan
[2019-09-18] MEDS ORDERED: Vancomycin 1 GM in Premix Bag 1 BAG IVPB SCH ×2 (14:00→20:00)
[2019-09-18] MEDS ORDERED: Iopamidol-370 76% 500 ML 1 ML ONE (15:32)
[2019-09-18] MEDS: Sodium Chloride 0.9% 1,000 ML IV SCH ×2 (17:00→20:30)
[2019-09-18] MEDS: Ibuprofen 800 MG TAB PO PRN (18:57)
--- NOTE | 2019-09-18 23:31 | CT ---
CT Abdomen Pelvis W Con HISTORY: Follow-up of infected pelvic hematoma. COMPARISON: 09/15/2019 CT study. FINDINGS: There is been development of a small right pleural effusion. There are periportal edema laure nges which have developed since the prior examination. In addition the hepatic veins have a somewhat unusual appearance with peripheral lucency and more central increased density. This is proba eli just related to edema around the hepatic veins but causes appearance of possible thrombus within the hepatic veins. The appearance is not typical for a Budd-Chiari and although I think it is unlikely further investigation would be warranted. There is fluid adjacent to the liver and somewhat loculated appearing fluid along the inferior liver margin and gallbladder region. The spleen and pancreas regions appear unremarkable. Right and left adrenal glands and right and left kidneys are normal in size. There is some fluid in t he paracolic gutters and some minimal edema change associated with the mesenteric fat. Coils are noted in the region of the gonadal veins. CT of pelvis performed with contrast: The central pelvic abscess collection appears slightly smaller as compared to the prior examination. It measured 4.9 x 6.8 cm on the prior study now measuring approximately 5.2 x 2.8 cm. There is more fluid seen anterior to the bladder. The bladder wall appear s thickened, it is contracted. Edema changes again noted in the perirectal fat. IMPRESSION: 1. Development of a small right pleural effusion now with ascites with fluid mainly around the liver somewhat loculated in appearance and surrounding the gallbladder. Fluid does track into the paracolic gutters. There is some mild edema change within the mesenteric fat. 2. There is been development of periportal edema change within the liver. In addition hepatic veins h ave a somewhat unusual appearance, I suspect that this is related some edema around the hepatic veins causing some compression but it causes the appearance of thrombus within the veins. Although I feel this is would be an unusual appearance for Budd-Chiari particularly in a patient who reportedly is not worsening in clinical status. I would still recommend ultrasound examination to exc lude hepatic vein thrombus. 3. Improvement in the appearance of the pelvic abscess. 4. Findings were discussed with the on-call hospitalist. The arrt technologist was also ramses roca
[2019-09-19] MEDS: Sodium Chloride 0.9% 1,000 ML IV SCH ×2 (02:40→17:35)
[2019-09-19 03:17] LABS: Vancomycin, Trough 34.1 ug/mL
[2019-09-19] MEDS: Piperacillin/Tazobactam 3.375 GM in Sodium Chloride 0.9% 100 ML IVPB SCH ×4 (04:04→22:26)
[2019-09-19 07:12] LABS: #Basophils 0.1 thou/uL (0.0-0.2); #Eosinphils 0.4 thou/uL (0.0-0.7); #Lymphocytes 1.2 thou/uL (1.20-3.40); #Monocytes 1.3 thou/uL (0.11-0.59); #Neutrophils 9.8 thou/uL (1.40-6.50); %Basophils 0.5 % (0.0-1.0); %Eosinophils 3.4 % (0.0-10.0); %Lymphocytes 9.3 % (21.0-51.0); %Monocytes 10.1 % (0.0-10.0); %Neutrophils 76.6 % (42.0-75.0); ALT (SGPT) 16 U/L (8-55); AST (SGOT) 16 U/L (5-34); Albumin 2.9 g/dL (3.5-5.0); Alkaline Phosphatase 86 U/L (40-110); Anion Gap 12 mmol/L (10-20); BUN (Urea Nitrogen) 5 mg/dL (7.0-18.7); Bilirubin, Total 0.8 mg/dL (0.2-1.2); Calc. Creatinine Clearance 63 mL/min (70-130); Calcium 8.2 mg/dL (7.8-10.44); Carbon Dioxide 22 mmol/L (22-29); Chloride 108 mmol/L (98-107); Estimated GFR-MDRD 43; Globulin 2.6 g/dL (2.4-3.5); Glucose 113 mg/dL (70-105); Hemoglobin 7.5 g/dL (12.0-16.0); Mean Corpuscular HGB CONC 35.8 g/dL (32.0-36.0); Mean Corpuscular Hemoglobin 32.5 pg (27.0-31.0); Mean Corpuscular Volume 90.9 fL (78.0-98.0); Mean Platelet Volume 7.7 fL (7.4-10.4); Platelet Count 300 thou/uL (130-400); Protein, Total 5.5 g/dL (6.0-8.3); RBC Distribution Width 12.9 % (11.5-14.5); Sodium 139 mmol/L (136-145); White Blood Cell (WBC) Count 12.8 thou/uL (4.8-10.8)
[2019-09-19 07:15] LABS: Potassium 2.9 mmol/L (3.5-5.1)
--- NOTE | 2019-09-19 07:43 | ULT ---
PRELIMINARY REPORT/DIRECT RADIOLOGY/EMERGENCY AFTER HOURS PROCEDURE: This report was discussed with Maria Luisa Rosen by Arlin Zhang on Sep 19, 2019 02:28:00 CDT. Addendum electronically signed by Arlin Zhang on September 19, 2019 2:28:17 AM CDT EXAM: US Abdomen Limited, Right Upper Quadrant. CLINICAL HISTORY: Recent hysterectomy, r/o hepatic veins thrombus TECHNIQUE: Real-time ultrasound of the right upper quadrant with image documentation. COMPARISON: None provided. FINDINGS: LIVER: Appears enlarged at 18.6 cm. The hepatic veins appear patent as are the portal veins. Perihe patic ascites is seen GALLBLADDER: No gallstone. Gallbladder sludge is noted with wall thickening at 5.8 mm and pericholec ystic fluid is identified. COMMON BILE DUCT: No dilation. Measures 2.5 mm IMPRESSION: No evidence for hepatic or portal venous thrombosis. The findings are consistent with ac alculus cholecystitis ELECTRONICALLY SIGNED BY: Luis Daigle MD Sep 19, 2019 2:16:28 AM CDT FINAL REPORT HEPATIC DOPPLER ULTRASOUND: DATE: 09/19/2019. COMPARISON: None HISTORY: Recent hysterectomy, evaluate patency of the hepatic vasculature. FINDINGS: I agree with the preliminary report. The hepatic vasculature is assessed with Doppler interrogation, including color flow and spectral analysis. The inferior vena cava is patent and demonstrates a normal waveform. There is patency with a normal t riphasic waveform documented within the right hepatic vein, middle hepatic vein, and left hepatic vein. There is patency documented within the main portal vein with normal directional flow. Right and left portal vein are patent. There is free fluid adjacent to the liver. There is prominent gallbladder wall thickening. No gallstones are seen. The common bile duct measures 2-3 mm, within normal limits. IMPRESSION: Patent hepatic vasculature. Perihepatic free fluid. Prominent wall thickening of the gallbladder, whi ch could be secondary to a systemic process with associated edema. Acalculous cholecystitis cannot be completely excluded in the proper clinical setting. Transcribed Date/Time: 09/19/2019 8:08 AM
--- NOTE | 2019-09-19 08:05 | PDOC.EVN ---
Event Note - Event Note Event Note: Tolerating diet. Ambulating. Voiding Still passing some serosanguinous vaginal fluid. O: T max 101.1. Tc 98.7 vss. HGB stable at 7.5. WBC decreased to 12.8 Plt 300K Creatinine 1.38...K+ 2.9... ABD omen is soft/non distended. Repeat CT scan shows vaginal infected hematoma decreased approximately by 50%. There was some question on initial read od CT that hepatic veins were thrombosed. Liver ultrasound shows normal/good flow to liver... A/P: Fever curve continues to improve. WBC decreased. Creatinine elevated from most likely vancomycin and recdent iv contrast. Hypokalemia-replete. Pharmacy is holding the vancomycin dose now. Replete K+ with po kcl. Continue zosyn and observation of temperature curve in hopes of possible discharge if afebrile 36-48 hours with continued po antibiotics...
[2019-09-19] MEDS ORDERED: Potassium Chloride 20 MEQ TAB PO SCH (08:30)
[2019-09-19] MEDS: Prenatal Vitamin 1 TAB PO SCH (08:45)
[2019-09-19] MEDS: Docusate 100 MG CAP PO SCH ×2 (09:12→22:30)
[2019-09-19 10:21] LABS: Vancomycin, Random 23.4 ug/mL (See Comment)
[2019-09-19] MEDS: Potassium Chloride 20 MEQ TAB PO SCH ×2 (10:21→17:14)
[2019-09-19] MEDS ORDERED: Vancomycin 1 GM in Premix Bag 1 BAG IVPB SCH (15:00)
[2019-09-19] MEDS: Acetaminophen 325 MG TAB PO PRN (17:12)
[2019-09-20] MEDS ORDERED: Vancomycin 1 GM in Premix Bag 1 BAG IVPB SCH (03:00)
[2019-09-20] MEDS: Piperacillin/Tazobactam 3.375 GM in Sodium Chloride 0.9% 100 ML IVPB SCH ×2 (04:39→10:05)
[2019-09-20 06:42] LABS: Anion Gap 12 mmol/L (10-20); BUN (Urea Nitrogen) 4 mg/dL (7.0-18.7); Calc. Creatinine Clearance 69 mL/min (70-130); Carbon Dioxide 22 mmol/L (22-29); Chloride 109 mmol/L (98-107); Estimated GFR-MDRD 48; Glucose 99 mg/dL (70-105); Potassium 3.1 mmol/L (3.5-5.1); Sodium 140 mmol/L (136-145)
[2019-09-20] MEDS: Sodium Chloride 0.9% 1,000 ML IV SCH (07:23)
[2019-09-20 08:27] VITALS: BP 111/67
[2019-09-20 08:35] VITALS: TEMP 99.4
[2019-09-20] MEDS: Docusate 100 MG CAP PO SCH (08:52)
[2019-09-20] MEDS: Prenatal Vitamin 1 TAB PO SCH (08:52)
[2019-09-20] MEDS: Acetaminophen 325 MG TAB PO PRN (08:53)
--- NOTE | 2019-09-20 09:12 | PDOC.EVN ---
Event Note - Event Note Event Note: Feels better. No issues. O:Afebrile over 36 hours...Cr 1.2...downtrending.VSS. ABD: soft/non tender. A/P: Patient has been afebrile over 36 hours. Clinically much better. D/c home on augmentin 875 mg bid x 7d. F/u in my office next week.Oral iron..
--- NOTE | 2019-09-20 16:22 | DIS ---
DATE OF ADMISSION: 09/15/2019 DATE OF DISCHARGE: 09/20/2019 DIAGNOSES: 1. Postoperative hysterectomy, pelvic infection. 2. Pelvic abscess/infected hematoma, resolved. OTHER DIAGNOSES: 1. Postoperative acute blood loss anemia. 2. Hypokalemia, treated. PROCEDURE PERFORMED: 1. CT scan of the abdomen and pelvis x2 and abdominal liver ultrasound. 2. Transfusion of 1 unit of packed red cells. 3. IV antibiotic therapy. SUMMARY OF HOSPITAL COURSE: Ms. Pino is a 38-year-old white female, who was admitted approximately postop day 7 for onset of high fevers at home. She had minimal pain associated with this. She had a history of undergoing a robotic hysterectomy on 09/08, complicated by postoperative hemorrhage necessitating a repeat laparoscopy with evacuation of hemoperitoneum and cauterization of the bleeding vessel. During that admission, she received 3 units of packed red cells for the anemia. The patient was admitted on the evening of postop day #7, which was 09/[address] scan showed her to have a 6.8 x 5 cm infected pelvic hematoma/abscess. No other findings were noted in the abdomen and pelvic CT scan including normal kidney and ureters and bladder and bowel. She was pancultured with urine culture and blood cultures, which all grew out to be negative during her hospital stay and was initiated on vancomycin and Zosyn. Clinically, the patient did well in between her fever spikes, but did continue to have fever on hospital day 0 to 1 to 103 range with normalization and then spike continues on hospital day 2 to 3 downtrending though 102 T-max to 101 T-max. Her initial white count was elevated at 19,000. She had a steady decline and normalization of her white count down from 19 to 14 and then recently down to 12. She did have persistent anemia with a hemoglobin around 7 and she received an additional 1 unit of packed red cells and aid with healing and to decrease her resting pulse rate from the 90s down into the 80s. Her hemoglobin had remained stable throughout the hospital at around 7.5. Vancomycin peak and troughs were carried out by the Pharmacy Department. She did have some elevation in her trough on hospital day 4 and that the vancomycin was held. She had a followup CT scan the night of 09/17 due to a low-grade fever spike of 101. Pelvic CAT scan showed greater than 50% reduction of the hematoma, which was much improved. There was some question with the contract that the patient may have had evidence of hepatic vein thrombosis. She had no clinical signs of this. On exam, there was no tumor noted and she clinically looked well, but due to the concern on the CAT scan, abdominal ultrasound of the liver was performed during the night of 09/18. The early a.m. on 09/18, ultrasound revealed normal hepatic venous findings and normal portal vein findings ruling out any thromboses. Due to the elevation of the vancomycin and noted recent IV contrast, the patient's creatinine was 1.38 and then helped to hold the vancomycin due to the high trough in the renal toxicity of this agent with recent contrast. We continued the Zosyn and the patient remained afebrile greater than 36 hours prior to discharge this morning, which is 09/20/2019. Clinically, the patient is ambulating and voiding and tolerating her diet. She has minimal pain and is only requiring occasional Tylenol and Motrin for this. She was discharged with a prescription for 7 days of Augmentin 875 b.i.d. for 7 days. She is instructed to use [id number] Slow Fe iron b.i.d. and to eat iron-rich foods. We will have a followup visit in 1 week in my office. ER instructions were given. The patient was discharged. Job ID: [id number]
== END 2019-09-20 11:11 | disposition home or self-care (01) | DRG 863 ==
LOC: ERS 14:20 → 3SW 16:37 → 3SE 09-16 13:21
PROVIDERS: ADMIT Obstetrics & Gynecology; ATTEND Obstetrics & Gynecology
PROC: 30233N1 Transfusion of Nonautologous Red Blood Cells into Peripheral Vein, Percutaneous Approach (ICD-10-PCS; principal; 2019-09-17)
DX: T81.49XA Infection following a procedure, other surgical site, initial encounter (principal); L76.32 Postprocedural hematoma of skin and subcutaneous tissue following other procedure; D62 Acute posthemorrhagic anemia; E87.6 Hypokalemia; N73.9 Female pelvic inflammatory disease, unspecified; H91.90 Unspecified hearing loss, unspecified ear; Y83.9 Surgical procedure, unspecified as the cause of abnormal reaction of the patient, or of later complication, without mention of misadventure at the time of the procedure; Z88.8 Allergy status to other drugs, medicaments and biological substances
CPT/HCPCS: 36415; 36430; 71045; 74177; 76705; 80048; 80053; 80202; 81003; 83605; 85007; 85025; 85027; 86850; 86900; 86901; 87040; 87086; 87804; 96360; 96361; 96365; 96366; J2543; J3370; J3490; J7050; P9016; Q0162; Q9967